=== PATIENT | female | born 1955 | race Caucasian/White ===

== ENCOUNTER 2016-05-28 08:17 | Outpatient (CLI) | payer OTHER ==
[2016-05-28] MEDS ORDERED: NORMAL SALINE 10 ML SYRINGE FLUSH IVP PRN (08:45)
[2016-05-28] MEDS ORDERED: HEPARIN 500 UNIT/5 ML SYRINGE FOR CENTRAL LINE IVP PRN (08:45)
== END 2016-05-28 09:00 | disposition home or self-care (01) ==
LOC: LAB 08:17 → IV THERAPY 08:17
PROVIDERS: ATTEND Internal Medicine Medical Oncology
DX: C56.9 Malignant neoplasm of unspecified ovary (principal); Z45.2 Encounter for adjustment and management of vascular access device
CPT/HCPCS: 99211

== ENCOUNTER → 2016-07-26 | Outpatient (CLI) | payer OTHER ==
[2016-07-26 12:07] LABS: BASOPHILS # (AUTO) 0.13 10*3/UL; BASOPHILS % (AUTO) 1.3 % (0-1); HEMATOCRIT 39.7 % (37.0-47.0); HEMOGLOBIN 13.5 g/dL (12.0-16.0); LYMPHOCYTES # (AUTO) 1.97 10*3/uL; MEAN CORPUSCULAR VOLUME 85.2 FL (81-99); MEAN PLATELET VOLUME 8.8 FL (7.4-12.2); MONOCYTES # (AUTO) 0.77 10*3/UL (0.3-0.8); MONOCYTES % (AUTO) 7.5 % (5-15); NEUTROPHILS % (AUTO) 70.6 % (50-80); RED BLOOD COUNT 4.66 10^6/uL (4.20-5.40)
[2016-07-26 12:09] LABS: PLATELET MORPHOLOGY COMMENT NORMAL MORPHOLOGY (NORM); RBC MORPHOLOGY COMMENT NORMAL MORPHOLOGY (NORM); WBC MORPHOLOGY COMMENT NORMAL MORPHOLOGY (NORM)
[2016-07-26 12:12] LABS: BLOOD UREA NITROGEN 12 mg/dL (7-22); CALCIUM 9.9 mg/dL (8.7-10.7); EST GLOMERULAR FILTRATION > 60 (>60 ml/min/1.73m(2)); SERUM ALBUMIN 3.9 g/dL (3.5-4.8)
== END ==
LOC: LAB 11:45
PROVIDERS: ATTEND Internal Medicine Medical Oncology
DX: C56.9 Malignant neoplasm of unspecified ovary (principal)
CPT/HCPCS: 36415; 80053; 85025; 86304

== ENCOUNTER → 2016-08-02 | Outpatient (CLI) | payer OTHER ==
[2016-08-02 14:02] LABS: HEMATOCRIT 34.7 % (37.0-47.0); HEMOGLOBIN 11.4 g/dL (12.0-16.0); MEAN CORPUSCULAR HEMOGLOBIN 27.8 PG (27-31); MEAN CORPUSCULAR HGB CONC 32.9 g/dL (33-37); MEAN CORPUSCULAR VOLUME 84.6 FL (81-99); MEAN PLATELET VOLUME 9.6 FL (7.4-12.2)
[2016-08-02 14:35] LABS: BLOOD UREA NITROGEN 11 mg/dL (7-22); BUN/CREATININE RATIO 15.71 (6-20); CALCIUM 9.5 mg/dL (8.7-10.7); EST GLOMERULAR FILTRATION > 60 (>60 ml/min/1.73m(2)); SERUM ALBUMIN 3.1 g/dL (3.5-4.8)
[2016-08-02 14:50] LABS: PLATELET MORPHOLOGY COMMENT NORMAL MORPHOLOGY (NORM); WBC MORPHOLOGY COMMENT SEE COMMENTS (NORM)
[2016-08-02 14:51] LABS: BAND NEUTROPHILS % 3 % (0-10); BASOPHILS % (MANUAL) 0 % (0-1); EOSINOPHILS % (MANUAL) 0 % (0-8); LYMPHOCYTES % (MANUAL) 29 % (10-50); METAMYELOCYTES % 0 %; MONOCYTES % (MANUAL) 4 % (0-12); MYELOCYTES % 0 %; NEUTROPHILS % (MANUAL) 64 % (50-80); PROMYELOCYTES % 0 %; RBC MORPHOLOGY COMMENT SEE COMMENTS (NORM)
== END ==
LOC: LAB 13:38
PROVIDERS: ATTEND Internal Medicine Medical Oncology
DX: C56.2 Malignant neoplasm of left ovary (principal)
CPT/HCPCS: 36415; 80053; 85007; 86304

== ENCOUNTER → 2016-08-26 | Outpatient (CLI) | payer OTHER ==
[2016-08-26 15:00] LABS: HEMATOCRIT 31.4 % (37.0-47.0); HEMOGLOBIN 9.9 g/dL (12.0-16.0); MEAN CORPUSCULAR HEMOGLOBIN 28.4 PG (27-31); MEAN CORPUSCULAR HGB CONC 31.5 g/dL (33-37); RED BLOOD COUNT 3.49 10^6/uL (4.20-5.40)
[2016-08-26 16:22] LABS: BUN/CREATININE RATIO 10.9 (6-20); CALCIUM 9.2 mg/dL (8.7-10.7); SERUM ALBUMIN 3.7 g/dL (3.5-4.8)
[2016-08-26 16:31] LABS: PLATELET MORPHOLOGY COMMENT NORMAL MORPHOLOGY (NORM); RBC MORPHOLOGY COMMENT NORMAL MORPHOLOGY (NORM); WBC MORPHOLOGY COMMENT NORMAL MORPHOLOGY (NORM)
[2016-08-26 16:34] LABS: BAND NEUTROPHILS % 5 % (0-10); BASOPHILS % (MANUAL) 2 % (0-1); EOSINOPHILS % (MANUAL) 0 % (0-8); LYMPHOCYTES % (MANUAL) 28 % (10-50); METAMYELOCYTES % 0 %; MONOCYTES % (MANUAL) 0 % (0-12); MYELOCYTES % 0 %; NEUTROPHILS % (MANUAL) 65 % (50-80); PROMYELOCYTES % 0 %
== END ==
LOC: LAB 14:45
PROVIDERS: ATTEND Internal Medicine Medical Oncology
DX: C56.2 Malignant neoplasm of left ovary (principal)
CPT/HCPCS: 36415; 80053; 85007; 86304

== ENCOUNTER → 2016-09-23 | Outpatient (CLI) | payer OTHER ==
[2016-09-23 16:38] LABS: HEMATOCRIT 28.6 % (37.0-47.0); HEMOGLOBIN 9.1 g/dL (12.0-16.0); MEAN CORPUSCULAR HEMOGLOBIN 31.7 PG (27-31); MEAN CORPUSCULAR HGB CONC 31.8 g/dL (33-37); MEAN CORPUSCULAR VOLUME 99.7 FL (81-99); MEAN PLATELET VOLUME 10.9 FL (7.4-12.2); RED BLOOD COUNT 2.87 10^6/uL (4.20-5.40)
[2016-09-23 16:45] LABS: CALCIUM 8.5 mg/dL (8.7-10.7); SERUM ALBUMIN 3.5 g/dL (3.5-4.8)
[2016-09-23 17:47] LABS: PLATELET MORPHOLOGY COMMENT NORMAL MORPHOLOGY (NORM); WBC MORPHOLOGY COMMENT NORMAL MORPHOLOGY (NORM)
[2016-09-23 17:48] LABS: RBC MORPHOLOGY COMMENT SEE COMMENTS (NORM)
[2016-09-23 17:52] LABS: BAND NEUTROPHILS % 1 % (0-10); BASOPHILS % (MANUAL) 0 % (0-1); EOSINOPHILS % (MANUAL) 0 % (0-8); LYMPHOCYTES % (MANUAL) 28 % (10-50); MONOCYTES % (MANUAL) 3 % (0-12); NEUTROPHILS % (MANUAL) 68 % (50-80)
== END ==
LOC: LAB 16:16
PROVIDERS: ATTEND Internal Medicine Medical Oncology
DX: C56.2 Malignant neoplasm of left ovary (principal)
CPT/HCPCS: 36415; 80053; 85007; 86304

== ENCOUNTER 2017-01-09 03:25 | Inpatient (IN) ==
[2017-01-09] MEDS ORDERED: MORPHINE SULFATE 4 MG/1 ML IVP ONE (03:50)
[2017-01-09] MEDS ORDERED: ONDANSETRON 4 MG/2 ML VIAL IVP ONE (03:50)
[2017-01-09] MEDS ORDERED: Sodium Chloride 0.9% 1,000 ML PRIMARY IV ONE ×3 (03:50→07:27)
--- NOTE | 2017-01-09 03:56 | PDOC ---
GI Bleed/Rectal Complaint HPI - General Chief Complaint: GI Bleed / Rectal Pain Stated Complaint: blood in stools Date Seen by Provider: 01/09/17 Time Seen by Provider: 03:51 Source: POSITIVE: Patient Exam Limitations: POSITIVE: No limitations Nurse's Notes Reviewed & Considered: Yes - History of Present Illness Initial Comments: This is a 61-year-old female complaining of a bloody stool approximately 20 minutes prior to presentation here in the emergency department. Patient has a history of stage IV ovarian cancer diagnosed in 2014. She is presently on her third round of chemotherapy, having received her last dose on Tuesday of this week. She is presently on Taxotere and cisplatin. She denies any fever, but does have chills. She denies any chest pain, no shortness of breath, no cough. She does have abdominal distention and abdominal pain. Body Location Affected: REPORTS: Abdomen Timing: REPORTS: Abrupt Duration: 1/2 hour Severity: Moderate Quality: REPORTS: Cramping, "Pain" Context: REPORTS: Other (Ovarian cancer) Associated Symptoms: REPORTS: Blood Mixed with Stool, Diffuse (Diffuse abdominal pain), Nausea Last BM (Date): 01/09/17 Similar Symptoms Previously: No Recent Care Received: REPORTS: Other (Presently undergoing chemotherapy.) Any Prior Injuries Related to Current Complaint?: No - Patient Home Medications Home Medications: Home Medications Docetaxel [Taxotere] 80 mg IV BID 01/09/17 Filgrastim Inj [Neupogen Inj] 0.5 ml IM ONCE 01/09/17 - Patient Allergies Allergies/Adverse Reactions: Allergies 3 Allergy/AdvReac Type Severity Reaction Status Date / Time Penicillins Allergy Unknown Verified 01/09/17 03:28 Past Medical History - heen HEENT History: Denies History Cardiovascular History: Denies History Respiratory History: Denies History Gastrointestinal History: Small Bowel Obstruction, Other (please comment) Additional Gastrointestinal History: 3-6 feet of bowel removed. Genitourinary History: Denies History Endocrine History: Denies History Musculoskeletal History: Denies History Neurological History: Denies History Blood Disorders: Denies History Psychiatric History: Denies History History of Sexually Transmitted Diseases: No Female Reproductive History: Other (please comment) Additional Female Reproductive History: Ovarian CA- stage 4 Obstetrical History: Denies History Cancer History: Ovarian Cancer Treatment / Date(s) of Treatment: SURGERY, CHEMOTHERAPY In Past Year Been Physically Harmed or Verbally Threatened: No History of MDRO: No History of Other Communicable Diseases: No Tobacco Use: Current Every Day Smoker Alcohol Use: None In the Past 12 Months, Have Used or Abuse Any Substance: None Previous Surgical History: Yes Type / Date of Surgery: HYSTERECTOMY WITH BILATERAL OOPHERECTOMY Anesthesia Reactions: No Malignant Hyperthermia: No Family History of Malignant Hyperthermia: No Significant Family History: No pertinent family hx ROS - Limitations ROS Limitations: No Limitations Constitution: REPORTS: Chills Respiratory: REPORTS: Denies Resp Symptoms Neurological: REPORTS: Denies Neuro Symptoms Gastrointestinal: REPORTS: Abdominal Pain, Nausea, Bloody Stools Endocrine: REPORTS: Fatigue Musculoskeletal: REPORTS: Denies MS Symptoms Genitourinary: REPORTS: Denies Symptoms Eyes: REPORTS: Denies Symptoms ENT: REPORTS: Denies Symptoms Skin: REPORTS: Denies Skin Symptoms Lympathic: REPORTS: Denies Lympathic Symptoms Immunologic: POSITIVE: Denies Symptoms Psychiatric: POSITIVE: Denies Psych Symptoms GI Bleed / Rectal Complaint PE - General Appearance General Appearance: POSITIVE: Alert, Cooperative, No Acute Distress, No Evidence of Trauma - HEENT HEENT: POSITIVE: Head Inspection Nml, Eyes Inspection Nml, Ears Inspection Nml, Nose Inspection Nml, Oral/Dental Inspect. Nml, Pharynx Inspect. Nml, PERRL, EOMI - Neck Neck: POSITIVE: Normal Inspection, No Apparent Injury - Respiratory Respiratory: POSITIVE: No Respiratory Distress, Breath Sounds Normal, Chest Non- Tender - Cardiovascular Cardiovascular: POSITIVE: Regular Rate and Rhythm, Heart Sounds Normal, Equal Pulses, Strong Pulses - Abdomen Abdomen: Tenderness Noted: (All Quadrants), Palpable Mass Noted: (LLQ), (LUQ), Prominent Aortic Pulse: (All Quadrants), Pulsatile Mass: (LLQ), (RLQ), Hypoactive Bowel Sounds: (All Quadrants), Distention: (All Quadrants) - Skin Skin: POSITIVE: Color Normal, No Rash, Warm, Dry - Extremities Extremity: Non-Tender: (All Extremities), Normal ROM: (All Extremities), Normal Inspection: (All Extremities), Pelvis Stable: (All Extremities) - Neurological / Psychological Neurological: POSITIVE: Oriented X3, Motor Normal, Sensation Normal GI Bleed / Rectal Progress - Results Reviewed by me Xrays/CTs/US Reviewed by me: Yes Discussed with Radiologist: Yes Lab Results Reviewed by Me: Yes CBC and BMP: 01/09/17 04:05 01/09/17 04:05 - Patient's Progress Pain Medication Addressed: POSITIVE: Yes Re-Examine Time:: 06:28 Status: POSITIVE: Improved MDM / ED Course: Patient was examined, her port was accessed and a new IV was started peripherally. Blood was drawn and sent to the lab for studies, CT scan of her abdomen was obtained. Findings: CBC shows a white count of 30, hemoglobin of 8. Platelets are normal. Comprehensive metabolic panel shows a sodium of 131 and a chloride of 97. BUN is 24, creatinine is normal. Magnesium is low at 1.5. CT scan of her abdomen shows large loculated ascites with masslike effect on the duodenum. Possible mass in the stomach and possible mass in liver and spleen. Assessment: #1 stage IV ovarian cancer. #2 GI bleed. #3 anemia. #4 hypomagnesemia. #5 hyponatremia. Plan: Admission, transfusion. - Consult Consult (If Yes, Name of Consulting MD & Time Called): Yes (Dr. Garcia, 06:30) Consulting MD will see pt:: POSITIVE: [facility] [place] Admit Counseled: POSITIVE: Patient, Family, RE: Lab Results, RE: Radiology Results, RE : DX, RE: Need for F/U Patient Care Time - Estimated PCT Patient Care Time (In Minutes): 60 Vital Signs - Recent Vital Signs Vital Signs: Vital Signs (Last 8 hours) Temp Pulse Pulse Resp BP Pulse Ox 01/09/17 03:27 96.8 F 89 89 16 97/63 92 - VS Reviewed Vital Signs Reviewed: Yes Discharge Clinical Impression: Ovarian cancer, Lower GI bleed, Anemia Discharge Disposition: Admit to Inpatient Condition: Stable Follow Up With: BALWINDER FLYNN FNP [Primary Care Provider] - Date Decision to Admit to Inpatient: 01/09/17 Time Decision to Admit to Inpatient: 06:34
[2017-01-09 04:10] LABS: Hematocrit [HCT] 25.1 % (37.0-47.0); MEAN CORPUSCULAR HEMOGLOBIN 30.3 PG (27-31); MEAN CORPUSCULAR HGB CONC 31.9 g/dL (33-37); MEAN CORPUSCULAR VOLUME 95.1 FL (81-99); MEAN PLATELET VOLUME 10.4 FL (7.4-12.2); RED BLOOD COUNT 2.64 10^6/uL (4.20-5.40)
[2017-01-09 04:20] LABS: BAND NEUTROPHILS % 11 % (0-10); BASOPHILS % (MANUAL) 0 % (0-1); BLOOD UREA NITROGEN 24 mg/dL (7-22); EOSINOPHILS % (MANUAL) 0 % (0-8); MAGNESIUM 1.5 mg/dL (1.6-2.4); METAMYELOCYTES % 1 %; MONOCYTES % (MANUAL) 1 % (0-12); NEUTROPHILS % (MANUAL) 82 % (50-80); PLATELET MORPHOLOGY COMMENT NORMAL MORPHOLOGY (NORM); RBC MORPHOLOGY COMMENT SEE COMMENTS (NORM); SERUM ALBUMIN 3.1 g/dL (3.5-4.8); WBC MORPHOLOGY COMMENT NORMAL MORPHOLOGY (NORM)
[2017-01-09] MEDS ORDERED: Magnesium Sulfate 2gm (Premix) 2 GM/50 ML BAG IV ONE ×2 (04:32→04:34)
--- NOTE | 2017-01-09 06:10 | DI ---
EXAM: CT Abdomen and Pelvis With Intravenous Contrast CLINICAL HISTORY: rectal bleeding, hx of ovarian ca TECHNIQUE: Axial computed tomography images of the abdomen and pelvis with intravenous contrast. COMPARISON: CT 06/06/14. FINDINGS: Lower thorax: No acute findings. ABDOMEN: Liver: Scalloping of the liver is noted. Ill-defined complex low- density lesion in the left hepatic lobe measuring approximately 5.7 cm. Gallbladder and bile ducts: Cholelithiasis. Pancreas: Unremarkable. Spleen: Low density lesions in the spleen, measuring up to 3.2 cm. Adrenals: Thickening of the bilateral adrenal glands. Kidneys and ureters: No hydronephrosis. Small right renal hypodensity, possible cyst. Stomach and bowel: See below. Areas of mild colonic wall thickening or underdistention. Prior bowel surgery noted. No evidence of small bowel obstruction. PELVIS: Bladder: Not well seen. Reproductive: Not well seen. ABDOMEN and PELVIS: Intraperitoneal space: Large loculated ascites with loculated fluid collection in the midline upper abdomen, measuring approximately 14.1 x 19.3 x 18.1 cm, with associated mass effect on the stomach and adjacent structures. Focal wall thickening of the distal stomach (image [id number]), cannot exclude possible mass. There is probable compression of the distal duodenum with distention of the descending duodenum. Probable additional loculated collection inferior to the stomach. Bones/joints: No acute fracture. Soft tissues: Unremarkable. Vasculature: Atherosclerotic disease. Lymph nodes: Unremarkable. IMPRESSION: 1. Large loculated ascites with a 14.1 x 19.3 x 18.1 cm fluid collection in the midline upper abdomen, with associated mass effect on the stomach and adjacent structures. There is probable compression of the distal duodenum with distention of the descending duodenum. 2. Focal wall thickening of the distal stomach, cannot exclude possible mass. 3. Ill-defined low density lesions in the liver and spleen, cannot exclude malignant etiology. 4. Areas of mild colonic wall thickening or underdistention.
[2017-01-09] MEDS ORDERED: diphenhydrAMINE 25 MG CAPSULE PO ONE ×2 (07:27→13:52)
[2017-01-09] MEDS ORDERED: ACETAMINOPHEN 325 MG TABLET PO PRN (07:27)
[2017-01-09] MEDS ORDERED: ONDANSETRON 4 MG/2 ML VIAL IVP PRN (07:27)
[2017-01-09] MEDS ORDERED: Sodium Chloride 0.9% 500 ML PRIMARY IV ONE (07:27)
[2017-01-09] MEDS ORDERED: LIDOCAINE W/ SODIUM BICARB 0.5 ML SYR SUBD PRN (07:27)
[2017-01-09] MEDS ORDERED: ACETAMINOPHEN 325 MG TABLET PO ONE ×2 (07:27→13:52)
[2017-01-09] MEDS ORDERED: predniSONE Tab 20 MG TAB PO ONE ×2 (07:27→13:52)
[2017-01-09] MEDS ORDERED: NORMAL SALINE 10 ML SYRINGE FLUSH IVP PRN (07:27)
[2017-01-09] MEDS ORDERED: NICOTINE 21 MG /DAY PATCH TRANSDERM ONE (10:08)
[2017-01-09] MEDS ORDERED: NICOTINE 21 MG /DAY PATCH TRANSDERM PRN (10:08)
[2017-01-09] MEDS: Pantoprazole Inj 40 MG in Normal Saline Flush 10 ML IVP SCH (10:25)
--- NOTE | 2017-01-09 18:48 | PDOC ---
HPI - History of Present Illness Date and Time of Service: 01/09/2017, 935 Chief Complaint: Bleeding History of Present Illness: This is a very pleasant 61-year-old female who has ovarian cancer and is doing chemotherapy. She developed this in 2014, had debulking surgery and hysterectomy at that time along with bilateral tubal and ovarian removal as well. She had chemotherapy 4 times and then was declared cancer free but was rediagnosed this past year with recurrent malignancy. The patient states to me that she is on docetaxel and she knew that GI bleeding can be a complication. She wasn't feeling overly well over the last couple of days, and noticed bright red blood today and came in for evaluation. She had her last chemotherapy dose last week. She is also on steroids. She denies any fevers, chills, nausea, vomiting, or problems with ulcers in the past. She does admit to smoking. She does not drink alcohol. She is not taking anti-inflammatories. And she reports no significant cancer pain. She has had ascites in the past and has had 2 prior paracentesis procedures and the fluid has been loculated. She recently visited with her mobile unit assistant oncologist in [place], and was told that debulking at this point would not make sense and would not extend life. She is currently wanting to eat. She was found to be anemic in the emergency room and blood has been asked for, but we had to get irradiated blood from [place]. It is type A blood and the patient is AB. She did have a recent shot of Neupogen, and was found to have an elevated white blood cell count as well. CT scan of the abdomen and pelvis revealed lesions that looked consistent with metastatic disease and several pockets of loculated ascites. She's never had rectal bleeding before. She describes the bleeding as bright red blood per rectum. She states she has hemorrhoids but has not noticed any bleeding from her hemorrhoids in the past. She has no known diverticular disease and no known history of ulcers. The bleeding has stopped by the time she came in. I found the patient to be hypotensive, but she states that her normal blood pressures range in the 80s to 90s on the systolic side and that is a chronic problem for the patient. She is not symptomatic and does not feel dizzy, and denies any chest pain or shortness of breath. Past Medical History Medical History: 1 ovarian cancer. 2 tobacco abuse Surgical History: 1. Hysterectomy with bilateral ovarian and tubal removal Pertinent Family History: Mother had dementia and in old age. Father had a brain aneurysm. Past Social History: Has 2 children, described as healthy. 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 She smokes, doesn't drink, lives alone. Tobacco Use: Current Every Day Smoker In the Past 12 Months, Have Used or Abuse Any of the Following Substance: None Alcohol Use: None Medication / Allergies Home Medications: Home Medications Medication Instructions Recorded Confirmed Type Docetaxel [Taxotere] 80 mg IV BID 01/09/17 01/09/17 History Filgrastim Inj [Neupogen Inj] 0.5 ml IM ONCE 01/09/17 01/09/17 History Allergies/Adverse Reactions: Allergies 3 Allergy/AdvReac Type Severity Reaction Status Date / Time Penicillins Allergy Unknown Verified 01/09/17 07:28 Review of Systems - Review of Systems All Systems: Reviewed & No Additional Complaints Except as Stated (I did a 12 point review systems and other than that discussed in history present illness it was negative. Exceptions are noted below.) - Constitutional Constitutional: REPORTS: Weight Loss Exam - Vitals Vital Signs: Vital Signs Temperature 98.5 F Temperature Source Oral Pulse Rate [Pulse Oximeter] 62 Pulse Rate 64 Respiratory Rate 18 Blood Pressure [Left Arm] 84/55 Blood Pressure 80/51 Pulse Ox 97 Oxygen Flow Rate 2 Oxygen Delivery Method Nasal Cannula Height 5 ft 3 in Weight 108 lb - General General Appearance: No Acute Distress, Cooperative, Thin - Head Head Exam: Normal Inspection, Normocephalic, Atraumatic - Eye Eye Exam: POSITIVE: No Scleral Icterus - ENT ENT Exam: POSITIVE: Mucous Membranes Moist - Neck Neck Exam: Normal Inspection, No Tenderness, No Lymphadenopathy, No Thyromegaly - Respiratory Respiratory Exam: POSITIVE: Clear to Auscultation - Bilaterally, Breathing Non Labored, Normal to Percussion and Palpation - Cardiovascular Cardiovascular Exam: POSITIVE: RRR, No Murmur, No Clicks, No Gallops, No Rubs, No JVD - GI/Abdominal GI/Abdominal Exam: POSITIVE: Normal Bowel Sounds, Non Tender, Positive for Ascites - Rectal Rectal Exam: POSITIVE: Normal Inspection, Normal Rectal Tone, Hemorrhoids ( external, not bleeding), Black Stool (dark speck os stool noted, no bright red blood per rectum) - External Exam: POSITIVE: Deferred Exam: POSITIVE: Deferred - Extremities Extremities Exam: POSITIVE: No Edema Present, No Cyanosis Present, Clubbing Present (in the digits.) - Back Back Exam: POSITIVE: Normal Inspection, No CVA Tenderness - Neurological Neurological Exam: POSITIVE: Alert, Oriented x 3, No Facial Droop, Speech Intact / Clear, Moves All Extremities Equally - Psychiatric Psychiatric Exam: POSITIVE: Normal Affect, Normal Mood - Integumentary Integumentary Exam: POSITIVE: Normal Color, Warm, Dry, Intact Results - Labs CBC and BMP: 01/09/17 04:05 01/09/17 04:05 Additional Lab Results: Laboratory Results 01/09/17 01/09/17 01/09/17 Range/Units 04:05 04:05 04:05 WBC 29.80 H (4.8-10.8) 10^3/uL RBC 2.64 L (4.20-5.40) 10^6/uL Hgb 8.0 L (12.0-16.0) g/dL Hct 25.1 L (37.0-47.0) % MCV 95.1 (81-99) FL MCH 30.3 (27-31) PG MCHC 31.9 L (33-37) g/dL RDW Std Deviation 56.8 H (39-50) fL RDW Coeff of Lela 17.0 H (11.5-14.5) % Plt Count 153 (140-350) 10*3/uL MPV 10.4 (7.4-12.2) FL Neutrophils % (Manual) 82 H (50-80) % Band Neutrophils % 11 H (0-10) % Lymphocytes % (Manual) 5 L (10-50) % Monocytes % (Manual) 1 (0-12) % Eosinophils % (Manual) 0 (0-8) % Basophils % (Manual) 0 (0-1) % Metamyelocytes % 1 % Myelocytes % Not Reportable Promyelocytes % Not Reportable Blast Cells Not Reportable WBC Morphology Comment Normal morphology (NORM) Plt Morphology Comment Normal morphology (NORM) RBC Morph Comment See comments (NORM) PT 10.9 (9.7-11.4) secs INR 1.03 (0.00-5.90) N/A Sodium 131 L (135-145) meq/L Potassium 4.0 (3.8-5.2) meq/L Chloride 97 L (98-112) meq/L Carbon Dioxide 25 (23-33) meq/L Anion Gap 9 (5-20) BUN 24 H (7-22) mg/dL Creatinine 0.8 (0.50-1.20) mg/dL Estimated GFR > 60 (>60 ml/min/1.73m(2)) BUN/Creatinine Ratio 30.00 H (6-20) Glucose 115 H (78-110) mg/dL Calculated Osmolality 276.0 (267-292) mOsm/kg Calcium 8.8 (8.7-10.7) mg/dL Magnesium 1.5 L (1.6-2.4) mg/dL Total Bilirubin 0.5 (0.3-1.2) mg/dL AST 25 (8-39) IU/L ALT 41 (9-52) IU/L Alkaline Phosphatase 101 (38-126) IU/L Total Protein 5.4 L (6.1-8.0) g/dL Albumin 3.1 L (3.5-4.8) g/dL Globulin 2.3 L (2.50-4.10) g/dL Albumin/Globulin Ratio 1.30 (1.3-2.0) mg/g Blood Type Antibody Screen Crossmatch 01/09/17 Range/Units 07:52 WBC (4.8-10.8) 10^3/uL RBC (4.20-5.40) 10^6/uL Hgb (12.0-16.0) g/dL Hct (37.0-47.0) % MCV (81-99) FL MCH (27-31) PG MCHC (33-37) g/dL RDW Std Deviation (39-50) fL RDW Coeff of Lela (11.5-14.5) % Plt Count (140-350) 10*3/uL MPV (7.4-12.2) FL Neutrophils % (Manual) (50-80) % Band Neutrophils % (0-10) % Lymphocytes % (Manual) (10-50) % Monocytes % (Manual) (0-12) % Eosinophils % (Manual) (0-8) % Basophils % (Manual) (0-1) % Metamyelocytes % % Myelocytes % Promyelocytes % Blast Cells WBC Morphology Comment (NORM) Plt Morphology Comment (NORM) RBC Morph Comment (NORM) PT (9.7-11.4) secs INR (0.00-5.90) N/A Sodium (135-145) meq/L Potassium (3.8-5.2) meq/L Chloride (98-112) meq/L Carbon Dioxide (23-33) meq/L Anion Gap (5-20) BUN (7-22) mg/dL Creatinine (0.50-1.20) mg/dL Estimated GFR (>60 ml/min/1.73m(2)) BUN/Creatinine Ratio (6-20) Glucose (78-110) mg/dL Calculated Osmolality (267-292) mOsm/kg Calcium (8.7-10.7) mg/dL Magnesium (1.6-2.4) mg/dL Total Bilirubin (0.3-1.2) mg/dL AST (8-39) IU/L ALT (9-52) IU/L Alkaline Phosphatase (38-126) IU/L Total Protein (6.1-8.0) g/dL Albumin (3.5-4.8) g/dL Globulin (2.50-4.10) g/dL Albumin/Globulin Ratio (1.3-2.0) mg/g Blood Type AB POSITIVE Antibody Screen Negative Crossmatch See Detail - Imaging Status: Image Reviewed by Me (I looked at the CT scan of the abdomen and pelvis and also read the radiology report. There is ascites, but it does appear loculated in several locations, and it's difficult to separate for me at least visually where bowel is in relation to this ascites. There appear to be some lesions in the spleen and the liver.) Assessment and Plan - Patient Problems (1) Rectal bleeding Current Visit: Yes Status: Acute Code(s): K62.5 - Hemorrhage of anus and rectum (2) Ascites Current Visit: Yes Status: Acute Code(s): R18.8 - Other ascites Qualifiers: Ascites type: malignant Qualified Code(s): R18.0 - Malignant ascites (3) Ovarian cancer Current Visit: Yes Status: Acute Code(s): C56.9 - Malignant neoplasm of unspecified ovary (4) Anemia Current Visit: Yes Status: Acute Code(s): D64.9 - Anemia, unspecified Qualifiers: Anemia type: other cause Other causes of anemia: other cause, not classified Qualified Code(s): D64.89 - Other specified anemias - Assessment / Plan Additional Assessment/Plan Details: Admit the patient. I think this is all a complication from her docetaxel. It is reported that GI bleeding can be a complication of this medication. She does not have overt symptoms that suggest upper GI bleed. It is not even clear if she is actively bleeding. Her blood pressures are in her normal range. She is not tachycardic. At this point, I think it would be reasonable to do a blood transfusion with 2 units, check CBC, and repeat CBC in the morning. I would like to stop the docetaxel. I will keep the patient on clears and start Protonix. If the patient looks as if she could be having some bleeding over the next 24- 48 hours, may need to consider scopes and I would consult surgery at that point. The white blood cell count is elevated but I think this is all in relation to recent Neupogen shot. CODE STATUS is DO NOT RESUSCITATE. I discussed the above plan with the patient and she was agreeable to the plan.
[2017-01-09] MEDS: Sodium Chloride 0.9% 1,000 ML PRIMARY IV SCH (20:20)
[2017-01-09 20:53] LABS: Hematocrit [HCT] 28.3 % (37.0-47.0); Hemoglobin [HGB] 9.3 g/dL (12.0-16.0); MEAN CORPUSCULAR HEMOGLOBIN 29.5 PG (27-31); MEAN CORPUSCULAR HGB CONC 32.9 g/dL (33-37); MEAN CORPUSCULAR VOLUME 89.8 FL (81-99); MEAN PLATELET VOLUME 10.3 FL (7.4-12.2); RED BLOOD COUNT 3.15 10^6/uL (4.20-5.40)
[2017-01-10] MEDS: Sodium Chloride 0.9% 1,000 ML PRIMARY IV SCH ×2 (03:30→08:09)
[2017-01-10 05:46] LABS: Hematocrit [HCT] 28.2 % (37.0-47.0); Hemoglobin [HGB] 9.3 g/dL (12.0-16.0); MEAN CORPUSCULAR HEMOGLOBIN 29.4 PG (27-31); MEAN CORPUSCULAR VOLUME 89.2 FL (81-99); MEAN PLATELET VOLUME 10.6 FL (7.4-12.2); RED BLOOD COUNT 3.16 10^6/uL (4.20-5.40)
[2017-01-10 05:59] LABS: BLOOD UREA NITROGEN 16 mg/dL (7-22); BUN/CREATININE RATIO 22.85 (6-20); SERUM ALBUMIN 2.8 g/dL (3.5-4.8)
[2017-01-10 06:05] LABS: BAND NEUTROPHILS % 8 % (0-10); BASOPHILS % (MANUAL) 0 % (0-1); EOSINOPHILS % (MANUAL) 0 % (0-8); MONOCYTES % (MANUAL) 2 % (0-12); NEUTROPHILS % (MANUAL) 86 % (50-80); PLATELET MORPHOLOGY COMMENT NORMAL MORPHOLOGY (NORM); RBC MORPHOLOGY COMMENT NORMAL MORPHOLOGY (NORM); WBC MORPHOLOGY COMMENT NORMAL MORPHOLOGY (NORM)
[2017-01-10] MEDS: Pantoprazole Inj 40 MG in Normal Saline Flush 10 ML IVP SCH (08:58)
[2017-01-10 16:16] VITALS: BP 128/74; RESP 18; TEMP 98.2; O2SAT 93
[2017-01-10] MEDS ORDERED: HEPARIN 500 UNIT/5 ML SYRINGE FOR CENTRAL LINE IVP ONE (16:41)
--- NOTE | 2017-01-10 17:30 | DCSUMMARY ---
Hospitalization Summary Admit Date: 01/09/17 Discharge Date: 01/10/17 Primary Diagnosis:: GI bleed, probably related to docetaxel Hospital Course: This a very pleasant 7-year-old female who has advanced ovarian cancer with metastatic lesions to the liver and spleen, who has been on docetaxel. She presented with the bloody stool, and was admitted, transfused a total of 3 units , and overall is feeling much better. She reports that her stool is black and it appears consistent with old blood and this was consistent with rectal exam as well. She did not have any vomiting of blood. Her blood pressures remained stable in the 90s to 120s, and the patient states to me that she is normally hypotensive with a systolic blood pressure normally in the 80s or 90s at baseline. She was never tachycardic. We placed her on Protonix, abdominal pain or other problems. Her white blood cell count was elevated. She had recently had Neupogen. She had no sign of infection. We discussed several options, including consultation of surgery in the hospital for consideration of EGD and colonoscopy here, outpatient EGD and colonoscopy discussion with surgery in the clinic, and the patient wished to have a discussion with her oncologist, surgery on an outpatient basis for an EGD and colonoscopy consideration. 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 She is agreeable to that therapy. I did look at bedside for potential paracentesis, but the patient has loculated fluid/ascites compartments that I feel her too dangerous for me to do under ultrasound guidance. It appears that she could have some areas where the bowel is actually adhered to the abdominal wall. Given some questionable anatomy appearance on ultrasound at least on my view, I feel it best for her to do these procedures for paracentesis with radiology with improved diagnostic and therapeutic interpretation of the images. Today, no completes of chest pain, shortness breath, nausea or vomiting, and again the patient states that she's having some dark tarry stools but no bright red blood. Her hemoglobin was 9.3 after transfusion yesterday and was 9.3 again this morning. We have one more unit that was given to her prior to discharge and the CBC is pending. Assessment and Plan: 1. As per discharge assessments noted 2. Disposition: Patient is discharged home. 3. Condition on discharge, stable and improved. 4. Diet: regular diet 5. Activities: resume normal activities 6. Follow-Up: 1. See Dr. Estrada in 1 week to discuss possible EGD and colonoscopy. 2. 7. Medications at the Time of Discharge: Home Medications Medication Instructions Recorded Confirmed Type Filgrastim Inj [Neupogen Inj] 0.5 ml IM ONCE 01/09/17 01/09/17 History Pantoprazole Sodium [Protonix] 40 mg PO DAILY #30 tablet. 01/10/17 Rx 8. Time, care, counseling and coordination of care for this discharge is greater than 30 minutes. Exam - Vitals Vital Signs: Vital Signs Temperature 98.2 F Temperature Source Oral Pulse Rate [Pulse Oximeter] 56 Pulse Rate 56 Respiratory Rate 18 Blood Pressure [Left Arm] 115/70 Blood Pressure 128/74 Pulse Ox 93 Oxygen Flow Rate 2 Oxygen Delivery Method Room Air Height 5 ft 3 in Weight 115 lb 12.8 oz - General General Appearance: No Acute Distress, Cooperative - Eye Eye Exam: POSITIVE: No Scleral Icterus - ENT ENT Exam: POSITIVE: Mucous Membranes Moist - Respiratory Respiratory Exam: POSITIVE: Clear to Auscultation - Bilaterally, Breathing Non Labored - Cardiovascular Cardiovascular Exam: POSITIVE: No Murmur, No Clicks, No Gallops, No Rubs, Bradycardia, No JVD - GI/Abdominal GI/Abdominal Exam: POSITIVE: Normal Bowel Sounds, Non Tender, Distended, Positive for Ascites - Extremities Extremities Exam: POSITIVE: No Clubbing Present, No Edema Present, No Cyanosis Present - Neurological Neurological Exam: POSITIVE: Alert, Oriented x 3, No Facial Droop, Speech Intact / Clear, Moves All Extremities Equally - Psychiatric Psychiatric Exam: POSITIVE: Normal Affect, Normal Mood Data Perinent Studies: Laboratory Results 01/09/17 01/09/17 01/09/17 Range/Units 04:05 04:05 04:05 WBC 29.80 H (4.8-10.8) 10^3/uL RBC 2.64 L (4.20-5.40) 10^6/uL Hgb 8.0 L (12.0-16.0) g/dL Hct 25.1 L (37.0-47.0) % MCV 95.1 (81-99) FL MCH 30.3 (27-31) PG MCHC 31.9 L (33-37) g/dL RDW Std Deviation 56.8 H (39-50) fL RDW Coeff of Ella 17.0 H (11.5-14.5) % Plt Count 153 (140-350) 10*3/uL MPV 10.4 (7.4-12.2) FL Neutrophils % (Manual) 82 H (50-80) % Band Neutrophils % 11 H (0-10) % Lymphocytes % (Manual) 5 L (10-50) % Monocytes % (Manual) 1 (0-12) % Eosinophils % (Manual) 0 (0-8) % Basophils % (Manual) 0 (0-1) % Metamyelocytes % 1 % Myelocytes % Not Reportable Promyelocytes % Not Reportable Blast Cells Not Reportable WBC Morphology Comment Normal morphology (NORM) Plt Morphology Comment Normal morphology (NORM) RBC Morph Comment See comments (NORM) PT 10.9 (9.7-11.4) secs INR 1.03 (0.00-5.90) N/A APTT (22.6-36.2) SECS Sodium 131 L (135-145) meq/L Potassium 4.0 (3.8-5.2) meq/L Chloride 97 L (98-112) meq/L Carbon Dioxide 25 (23-33) meq/L Anion Gap 9 (5-20) BUN 24 H (7-22) mg/dL Creatinine 0.8 (0.50-1.20) mg/dL Estimated GFR > 60 (>60 ml/min/1.73m(2)) BUN/Creatinine Ratio 30.00 H (6-20) Glucose 115 H (78-110) mg/dL Calculated Osmolality 276.0 (267-292) mOsm/kg Calcium 8.8 (8.7-10.7) mg/dL Magnesium 1.5 L (1.6-2.4) mg/dL Total Bilirubin 0.5 (0.3-1.2) mg/dL AST 25 (8-39) IU/L ALT 41 (9-52) IU/L Alkaline Phosphatase 101 (38-126) IU/L Total Protein 5.4 L (6.1-8.0) g/dL Albumin 3.1 L (3.5-4.8) g/dL Globulin 2.3 L (2.50-4.10) g/dL Albumin/Globulin Ratio 1.30 (1.3-2.0) mg/g Blood Type Antibody Screen Crossmatch 01/09/17 01/09/17 01/10/17 Range/Units 07:52 20:51 04:30 WBC 21.10 H 22.92 H (4.8-10.8) 10^3/uL RBC 3.15 L 3.16 L (4.20-5.40) 10^6/uL Hgb 9.3 L 9.3 L (12.0-16.0) g/dL Hct 28.3 L 28.2 L (37.0-47.0) % MCV 89.8 89.2 (81-99) FL MCH 29.5 29.4 (27-31) PG MCHC 32.9 L 33.0 (33-37) g/dL RDW Std Deviation 59.0 H 60.4 H (39-50) fL RDW Coeff of Lela 18.5 H 19.0 H (11.5-14.5) % Plt Count 121 L 126 L (140-350) 10*3/uL MPV 10.3 10.6 (7.4-12.2) FL Neutrophils % (Manual) 86 H (50-80) % Band Neutrophils % 8 (0-10) % Lymphocytes % (Manual) 4 L (10-50) % Monocytes % (Manual) 2 (0-12) % Eosinophils % (Manual) 0 (0-8) % Basophils % (Manual) 0 (0-1) % Metamyelocytes % Not Reportable % Myelocytes % Not Reportable Promyelocytes % Not Reportable Blast Cells Not Reportable WBC Morphology Comment Normal morphology (NORM) Plt Morphology Comment Normal morphology (NORM) RBC Morph Comment Normal morphology (NORM) PT (9.7-11.4) secs INR (0.00-5.90) N/A APTT (22.6-36.2) SECS Sodium (135-145) meq/L Potassium (3.8-5.2) meq/L Chloride (98-112) meq/L Carbon Dioxide (23-33) meq/L Anion Gap (5-20) BUN (7-22) mg/dL Creatinine (0.50-1.20) mg/dL Estimated GFR (>60 ml/min/1.73m(2)) BUN/Creatinine Ratio (6-20) Glucose (78-110) mg/dL Calculated Osmolality (267-292) mOsm/kg Calcium (8.7-10.7) mg/dL Magnesium (1.6-2.4) mg/dL Total Bilirubin (0.3-1.2) mg/dL AST (8-39) IU/L ALT (9-52) IU/L Alkaline Phosphatase (38-126) IU/L Total Protein (6.1-8.0) g/dL Albumin (3.5-4.8) g/dL Globulin (2.50-4.10) g/dL Albumin/Globulin Ratio (1.3-2.0) mg/g Blood Type AB POSITIVE Antibody Screen Negative Crossmatch See Detail 01/10/17 01/10/17 Range/Units 04:30 04:30 WBC (4.8-10.8) 10^3/uL RBC (4.20-5.40) 10^6/uL Hgb (12.0-16.0) g/dL Hct (37.0-47.0) % MCV (81-99) FL MCH (27-31) PG MCHC (33-37) g/dL RDW Std Deviation (39-50) fL RDW Coeff of Lela (11.5-14.5) % Plt Count (140-350) 10*3/uL MPV (7.4-12.2) FL Neutrophils % (Manual) (50-80) % Band Neutrophils % (0-10) % Lymphocytes % (Manual) (10-50) % Monocytes % (Manual) (0-12) % Eosinophils % (Manual) (0-8) % Basophils % (Manual) (0-1) % Metamyelocytes % % Myelocytes % Promyelocytes % Blast Cells WBC Morphology Comment (NORM) Plt Morphology Comment (NORM) RBC Morph Comment (NORM) PT (9.7-11.4) secs INR (0.00-5.90) N/A APTT 26.7 (22.6-36.2) SECS Sodium 131 L (135-145) meq/L Potassium 3.8 (3.8-5.2) meq/L Chloride 104 (98-112) meq/L Carbon Dioxide 23 (23-33) meq/L Anion Gap 4 L (5-20) BUN 16 (7-22) mg/dL Creatinine 0.7 (0.50-1.20) mg/dL Estimated GFR > 60 (>60 ml/min/1.73m(2)) BUN/Creatinine Ratio 22.85 H (6-20) Glucose 88 (78-110) mg/dL Calculated Osmolality 271.0 (267-292) mOsm/kg Calcium 8.4 L (8.7-10.7) mg/dL Magnesium (1.6-2.4) mg/dL Total Bilirubin 0.4 (0.3-1.2) mg/dL AST 20 (8-39) IU/L ALT 37 (9-52) IU/L Alkaline Phosphatase 110 (38-126) IU/L Total Protein 5.1 L (6.1-8.0) g/dL Albumin 2.8 L (3.5-4.8) g/dL Globulin 2.3 L (2.50-4.10) g/dL Albumin/Globulin Ratio 1.20 L (1.3-2.0) mg/g Blood Type Antibody Screen Crossmatch Patient Problems - Patient Problem List (1) GI bleed Current Visit: Yes Status: Acute Comment: Initially with bright red blood, it looked like this might be a lower GI bleed, but symptoms have been most consistent with an upper GI bleed. Either way I think it's a result of docetaxel, and she warrants proton pump inhibitor therapy. In addition, the patient would like to visit with surgery for consideration of an EGD and colonoscopy electively and does not want to approach it emergently. There does not appear to be any acute indication for as the patient has had hemoglobin and hematocrit stabilized post transfusion, and vital signs that show the patient is hemodynamically stable. She's been able to eat without any pain. She does not have any evidence of fast transit bleeding. Code(s): K92.2 - Gastrointestinal hemorrhage, unspecified Qualifiers: GI bleed type/associated pathology: unspecified gastrointestinal hemorrhage type Qualified Code(s): K92.2 - Gastrointestinal hemorrhage, unspecified Category: Medical (2) Ascites Current Visit: Yes Status: Acute Code(s): R18.8 - Other ascites Qualifiers: Ascites type: malignant Qualified Code(s): R18.0 - Malignant ascites Category: Medical (3) Ovarian cancer Current Visit: Yes Status: Acute Code(s): C56.9 - Malignant neoplasm of unspecified ovary Category: Medical (4) Anemia Current Visit: Yes Status: Acute Code(s): D64.9 - Anemia, unspecified Qualifiers: Anemia type: other cause Other causes of anemia: other cause, not classified Qualified Code(s): D64.89 - Other specified anemias Category: Medical
[2017-01-10 17:33] LABS: Hematocrit [HCT] 33.7 % (37.0-47.0); Hemoglobin [HGB] 11.5 g/dL (12.0-16.0); MEAN CORPUSCULAR HEMOGLOBIN 30.3 PG (27-31); MEAN CORPUSCULAR HGB CONC 34.1 g/dL (33-37); MEAN CORPUSCULAR VOLUME 88.7 FL (81-99); MEAN PLATELET VOLUME 10.3 FL (7.4-12.2); RED BLOOD COUNT 3.8 10^6/uL (4.20-5.40)
== END 2017-01-10 17:42 | disposition home or self-care (01) | DRG 378 ==
LOC: ER 03:25 → MED/SURG 06:34
PROVIDERS: ADMIT Family Medicine; ATTEND Family Medicine

== ENCOUNTER 2017-03-05 13:21 | Observation (INO) ==
[2017-03-05] MEDS ORDERED: Sodium Chloride 0.9% 1,000 ML PRIMARY IV ONE (13:31)
[2017-03-05] MEDS ORDERED: NORMAL SALINE 10 ML SYRINGE FLUSH IVP PRN ×2 (13:31→16:12)
--- NOTE | 2017-03-05 14:09 | PDOC ---
General Adult HPI - General Chief Complaint: Altered Mental Status Stated Complaint: Confusion Date Seen by Provider: 03/05/17 Time Seen by Provider: 13:20 Source: POSITIVE: Patient, EMS, Other (daughter) Exam Limitations: POSITIVE: No limitations Nurse's Notes Reviewed & Considered: Yes EMS Report Reviewed & Considered: Verbal - History of Present Illness Initial Comment: The patient is a 61-year-old female who is brought to the emergency department by EMS after being unresponsive at home. She has a history of metastatic ovarian cancer for which she had recently been undergoing treatment with chemotherapy. 2 weeks ago she had presented to the emergency department with increased abdominal pain. At that time she was found to have a possible perforated bowel and had been transferred to [place]. A cousin of her underlying condition it was determined there that she would likely not survive surgical intervention. While in the hospital there she had developed a red swollen area on her left upper abdomen. This was lanced and a large amount of fluid came out. 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 She has had significant amounts of drainage from this and every time she eats or drinks anything it comes right through. She was here yesterday and received IV fluids. She was also having large amounts of drainage from the site and arrangements were made to have a urostomy collection site applied and the drainage was collecting in a Lu catheter bag. Dr. Umana had discussed the patient with the surgeon in [place] and it was his recommendation that the patient would be a good candidate for hospice. Dr. Umana had talked to the family about this and actually the patient's daughter had contacted hospice yesterday and they have an appointment on Tuesday to discuss options. This afternoon however her daughter found her completely unresponsive and called EMS. When they arrived the patient was unresponsive and oxygen saturations were in the 70s. They placed her on O2 and she subsequently woke up. By the time she was here in the hospital she was awake and talking. She states she does not really remember anything over the past couple of days including coming to the hospital yesterday. Her daughter states that her short-term memory is significantly impaired. She is extremely thirsty and has been drinking water almost continuously which just comes out through her fistula. She has no other specific complaints currently. Have you received a tetanus shot in the past 10 years?: No - Patient Home Medications Home Medications: Home Medications Oxycodone HCl/Acetaminophen [Oxycodone-Acetaminophen 10-325] 1 ea PO Q4-6H 03/04 Pantoprazole Sodium [Protonix] 40 mg PO DAILY #30 tablet. 03/04/17 fentaNYL Patch 25mcg [Duragesic Patch 25mcg] 1 ea TRANSDERM Q72HR 03/04/17 - Patient Allergies Allergies/Adverse Reactions: Allergies 3 Allergy/AdvReac Type Severity Reaction Status Date / Time Penicillins Allergy Unknown Verified 03/05/17 13:41 Past Medical History - heen HEENT History: Denies History Additional HEENT History: reading glasses Cardiovascular History: Denies History Respiratory History: Denies History Gastrointestinal History: Small Bowel Obstruction, Other (please comment) Additional Gastrointestinal History: 3 feet of bowel removed. Gastrocutaneous fistula. Genitourinary History: Denies History Endocrine History: Denies History Musculoskeletal History: Denies History Neurological History: Denies History Blood Disorders: Denies History Psychiatric History: Denies History History of Sexually Transmitted Diseases: No Cancer History: Ovarian Cancer Treatment / Date(s) of Treatment: SURGERY, CHEMOTHERAPY History of MDRO: No History of Other Communicable Diseases: No Alcohol Use: None In the Past 12 Months, Have Used or Abuse Any Substance: None Previous Surgical History: Yes Type / Date of Surgery: HYSTERECTOMY WITH BILATERAL OOPHERECTOMY. Bowel obstruction Anesthesia Reactions: No Malignant Hyperthermia: No Significant Family History: No pertinent family hx Past Medical History Reviewed: Reviewed - No Changes ROS - Limitations ROS Limitations: No Limitations Constitution: REPORTS: Chills. DENIES: Fever Cardiovascular: DENIES: Chest Pain Respiratory: REPORTS: Denies Resp Symptoms. DENIES: Shortness Of Breath Neurological: DENIES: Headache, Numbness, Weakness Gastrointestinal: REPORTS: Abdominal Pain, Other (She has the gastrocutaneous fistula with continuous drainage). DENIES: Vomitting Endocrine: REPORTS: Other (She reports feeling very thirsty) ENT: REPORTS: Other (Her mouth is quite dry) General Adult Exam - General Appearance General Appearance: POSITIVE: Alert, Cooperative, Other (She appears cachectic and chronically ill) - HEENT HEENT: POSITIVE: Head Inspection Nml, Eyes Inspection Nml, Ears Inspection Nml, Dry Mucous Membranes - Neck Neck: POSITIVE: Normal Inspection - Respiratory Respiratory: POSITIVE: No Respiratory Distress, Breath Sounds Normal - Cardiovascular Cardiovascular: POSITIVE: Regular Rate & Rhythm, No Murmur - Abdomen Additional Abdominal Details: Her abdomen is distended, no significant tenderness, she does have the urostomy collecting drainage from the gastrocutaneous fistula on the left upper quadrant - Skin Skin: POSITIVE: Normal Color, No Rash - Extremities Extremity: Normal ROM: (All Extremities), Normal Inspection: (All Extremities) General Adult Progress - Results Reviewed by me Lab Results Reviewed by Me: Yes CBC and BMP: 03/05/17 13:53 03/05/17 13:53 - Patient's Progress MDM / ED Course: The patient presents to the emergency to department after an unresponsive episode. She has end-stage metastatic ovarian cancer. 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 Her surgeon has determined that she is not a surgical candidate. I did discuss doing comfort care measures with the patient and her daughter on arrival. They were already considering hospice care. Initially the daughter wanted to think about that and therefore the patient's port was accessed and labs were drawn and she was given 1 L bolus of normal saline. After further discussion both with the patient and her daughter it was clear that they were willing to pursue comfort care at this point. The patient does have significant electrolyte abnormalities as well as anemia and renal failure likely associated to this fistula which drains out all of her oral intake. The current plan is for admission for pain control and comfort care measures and hospice consultation when available. - Consult Counseled: POSITIVE: Patient, Family, RE: Lab Results, RE: DX Patient Care Time - Estimated PCT Patient Care Time (In Minutes): 35 Vital Signs - Recent Vital Signs Vital Signs: Vital Signs (Last 8 hours) Temp Pulse Pulse Resp BP BP Pulse Ox 03/05/17 16:04 50 L 14 03/05/17 15:03 82 19 82/27 98 03/05/17 13:31 98.2 F 50 L 17 64/32 - VS Reviewed Vital Signs Reviewed: Yes Discharge Clinical Impression: Enterocutaneous fistula, Hypokalemia, Renal failure, Altered mental state Ovarian cancer Qualifiers: Laterality: unspecified laterality Qualified Code(s): C56.9 - Malignant neoplasm of unspecified ovary Anemia Qualifiers: Anemia type: other cause Other causes of anemia: other cause, not classified Qualified Code(s): D64.89 - Other specified anemias Discharge Disposition: Admit to Observation Condition: Poor
[2017-03-05 14:37] LABS: BUN/CREATININE RATIO 19.2 (6-20); SERUM ALBUMIN 2.7 g/dL (3.5-4.8)
[2017-03-05 15:03] LABS: Hematocrit [HCT] 26.3 % (37.0-47.0); Hemoglobin [HGB] 8.8 g/dL (12.0-16.0); MEAN CORPUSCULAR HEMOGLOBIN 30.9 PG (27-31); MEAN CORPUSCULAR HGB CONC 33.5 g/dL (33-37); MEAN CORPUSCULAR VOLUME 92 FL (81-99); RED BLOOD COUNT 2.86 10^6/uL (4.20-5.40)
[2017-03-05 15:07] LABS: BASOPHILS % (AUTO) 0.5 % (0-1); EOSINOPHILS % (AUTO) 1.2 % (0-8); MEAN PLATELET VOLUME 9.3 FL (7.4-12.2); MONOCYTES % (AUTO) 8 % (5-15); NEUTROPHILS % (AUTO) 74 % (50-80)
[2017-03-05 15:08] LABS: BASOPHILS # (AUTO) 0.04 10*3/UL; EOSINOPHILS # (AUTO) 0.09 10*3/UL; LYMPHOCYTES # (AUTO) 1.25 10*3/uL; MONOCYTES # (AUTO) 0.61 10*3/UL (0.3-0.8); NEUTROPHILS # (AUTO) 5.65 10*3/UL; PLATELET MORPHOLOGY COMMENT SEE COMMENTS (NORM); WBC MORPHOLOGY COMMENT NORMAL MORPHOLOGY (NORM)
[2017-03-05 15:09] LABS: RBC MORPHOLOGY COMMENT SEE COMMENTS (NORM)
[2017-03-05 16:09] VITALS: BP 64/32; TEMP 98.2
[2017-03-05] MEDS ORDERED: Morphine Syringe 300mg/30ml 300 MG/30 ML PCA.SYRING IV SCH (16:12)
[2017-03-05] MEDS ORDERED: LIDOCAINE W/ SODIUM BICARB 0.5 ML SYR SUBD PRN (16:12)
[2017-03-05] MEDS ORDERED: ONDANSETRON 4 MG/2 ML VIAL IVP PRN (16:12)
--- NOTE | 2017-03-05 16:32 | PDOC ---
HPI - History of Present Illness History of Present Illness: This very nice 61-year-old female with history of ovarian cancer went through chemotherapy. Also had debulking surgery and hysterectomy along with bilateral tubal and ovarian removal at that time had 4 rounds of chemotherapy was declared cancer free but rediagnosed 1 year ago with recurrent malignancy she also developed a gastro-abdominal fistula and that was seen at [facility] and is now fully is a bag and everything she eats or drink comes right out of her stomach and they were not able to offer much more for this nice patient and recommended hospice. Patient is been very weak he was unresponsive at home had a syncopal episode her daughter brought her to the hospital. I do this the patient is alert and oriented [address] and [address] she is very coherent at this point she wants nothing done no labs no IVs no medication she wants to be kept pain-free if pain develops. At present time she is pain-free her Lu bag that is hooked up her stomach is ready emptied once. She is also DO NOT RESUSCITATE I told her that we will keep her pain-free if she would hurt consult social service for possible hospice. "I will not last long" as per the patient Past Medical History Medical History: 1 ovarian cancer. 2 tobacco abuse Surgical History: 1. Hysterectomy with bilateral ovarian and tubal removal Pertinent Family History: Mother had dementia and in old age. Father had a brain aneurysm. Past Social History: Has 2 children, described as healthy. 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 She smokes, doesn't drink, lives alone. In the Past 12 Months, Have Used or Abuse Any of the Following Substance: None Medication / Allergies Home Medications: Home Medications Medication Instructions Recorded Confirmed Type Oxycodone HCl/Acetaminophen 1 ea PO Q4-6H 03/04/17 03/05/17 History [Oxycodone-Acetaminophen 10-325] Pantoprazole Sodium [Protonix] 40 mg PO DAILY #30 tablet. 03/04/17 03/05/17 Rx fentaNYL Patch 25mcg [Duragesic 1 ea TRANSDERM Q72HR 03/04/17 03/05/17 History Patch 25mcg] Allergies/Adverse Reactions: Allergies 3 Allergy/AdvReac Type Severity Reaction Status Date / Time Penicillins Allergy Unknown Verified 03/05/17 13:41 Review of Systems - Review of Systems All Systems: Reviewed & No Additional Complaints Except as Stated - Constitutional Constitutional: REPORTS: General Health Poor, Weight Loss, Fatigue, Weakness - Respiratory Respiratory: DENIES: Negative System Review, Cough, Sputum, Dyspnea At Rest, Dyspnea with Exertion, Pleuritic Pain, Hemoptysis, Wheezing, Other, See HPI - Cardiovascular Cardiovascular: DENIES: Negative System Review, Chest Pain, Edema, Syncope, Palpitations, Orthopnea, Paroxysmal Nocturnal Dyspnea, Other, See HPI - Gastrointestinal Gastrointestinal / Abdominal: REPORTS: See HPI Exam - Vitals Vital Signs: Vital Signs Pulse Rate 82 Respiratory Rate 19 Blood Pressure 82/27 Pulse Ox 98 - General General Appearance: No Acute Distress, Cooperative, Thin Additional General Exam Details: Cachectic and very malnourished - Head Head Exam: Atraumatic - Respiratory Respiratory Exam: POSITIVE: Clear to Auscultation - Bilaterally, Breathing Non Labored, Normal To Percussion, Normal to Percussion and Palpation - Cardiovascular Cardiovascular Exam: POSITIVE: RRR, No Murmur, No Clicks, No Gallops, No Rubs, PMI Non-Displaced - GI/Abdominal Additional GI/Abdominal Exam Details: Lu bag looked up to her gastrointestinal fistula - Extremities Extremities Exam: POSITIVE: No Clubbing Present, No Edema Present Results - Labs CBC and BMP: 03/05/17 13:53 03/05/17 13:53
[2017-03-06 05:13] VITALS: O2SAT 97
[2017-03-06 09:34] VITALS: RESP 6
--- NOTE | 2017-03-06 12:53 | PDOC(PROG) ---
Interval History: Patient is unresponsive on a morphine drip we are keeping pain. Under control respirations are between 10 and 12 discussed with family members all in agreement Objective : Data - Labs CBC and BMP: 03/05/17 13:53 03/05/17 13:53 Assessment and Plan - Patient Problems (1) Unresponsiveness Current Visit: Yes Status: Acute Comment: Continue morphine drip for pain control keep respirations between 10 and 12 family does not want any other measures done medications or test as well as the patient which told me yesterday with nurse present Kenny is the nurse's name
--- NOTE | 2017-03-06 19:53 | DCSUMMARY ---
Hospitalization Summary Hospital Course: Final Discharge Diagnosis: Metastatic ovarian cancer Electrolyte imbalance Nutrition/cachexia Diagnostic Data, Laboratory Data, and Procedures of Signifigance: History and Physical pertinent to Admission: Course of Hospitalization: Is a very nice 61-year-old female who presented to the emergency department after she sustained an unresponsive episode at home with low oxygen. Patient has end-stage metastatic ovarian cancer also she had it she has a gastrocutaneous fistula that basically drains everything she takes orally. She was seen in the ER the day before and Dr. Umana had also called the surgeon at that time at [facility] which recommended that she was not a surgical candidate and was a good candidate for hospice. The family and the patient wanted to pursue pain control and comfort care with no further therapy or lab work or interventions and I was called the by Dr. Hernandez to admit this patient. The patient was placed on the morphine drip secondary to pain respirations were maintained between 10-13. I had a really good discussion with the family and the patient herself the day before and this is what she really wanted to see my H&P. Patient the peacefully surrounded by family members unfortunately the son was not able to make it here from [place] Assessment and Plan: 1. As per discharge assessments above 2. Disposition: 3. Condition on discharge, stable and improved. 4. Diet: regular diet 5. Activities: resume normal activities 6. Follow-Up: 1. [PCP] 2. 7. Medications at the Time of Discharge: 8. Exam - Vitals Vital Signs: Vital Signs Pulse Rate [Apical] 81 Pulse Rate [Pulse Oximeter] 50 Pulse Rate 82 Respiratory Rate [Generalized] 6 Respiratory Rate 14 Blood Pressure 82/27 Pulse Ox 97 Oxygen Flow Rate 2 Oxygen Delivery Method Nasal Cannula Height 5 ft 6 in Weight 95 lb Patient Problems - Patient Problem List (1) Unresponsiveness Status: Acute Category: Medical
== END 2017-03-06 14:44 | disposition expired ==
LOC: MED/SURG 13:21 → ER 13:21 → MED/SURG 15:03
PROVIDERS: ADMIT Internal Medicine; ATTEND Internal Medicine